=== PATIENT | male | born 1965 | race Caucasian/White ===

== ENCOUNTER 2025-09-05 16:17 | Emergency (ER) | payer MEDICAID ==
[~2025-09-05] VITALS: Ht 172.7 cm; Wt 81.6 kg
[~2025-09-05 16:17] MED LIST: ADDERALL 10 MG10 MG PO; ADDERALL XR20 MG PO; ADDERALL XR30 MG PO; ADDERALL20 MG PO; ADDERALL30 MG PO; ALBUTEROL0.63 MG/3 INH; ALDACTONE25 M1 PO; ATROVENT H0.017 MG/A INH; AUGMENTIN 500 M1 TAB PO; BACTRIM DS 8001 TA1 PO; BLEPH-10 15 ML15 ML OP; CARBATROL100 MG PO; CARBATROL300 MG PO; CLINDAMYCIN150 MG PO; COLACE100 MG PO; COREG6.25 MG PO; CYCLOBENZAPRINE10 MG; FOLIC ACID1 MG PO; GEODON20 MG IJ; IBUPROFEN600 MG PO; KEFLEX500 MG PO; KEPPRA500 MG PO; KLONOPIN1 MG PO; LASIX40 MG PO; LEUCOVORIN CALC15 MG PO; LEVOFLOXACIN500 MG PO; LOPRESSOR25 MG PO; MOTRIN400 MG PO; MOTRIN800 MG PO; NATURE'S BLEND F1 MG PO; NEOMYCIN500 MG PO; NITROSTAT0.4 MG SL; PERCOCET 325 MG1 TA2; PERCOCET 325 MG1 TA2 PO; PERCOCET 325 MG1 TA6 PO; PIROXICAN10 MG PO; PRISTIQ50 MG PO; PYRIDIUM200 MG PO; QUETIAPINE FUM100 M1 PO; REQUIP0.5 MG PO; ROBAXIN750 MG PO; SEROQUEL XR200 MG PO; SEROQUEL300 MG PO; SERTRALINE50 MG PO; SOMA350 MG PO; TOPROL XL25 MG PO; TYLENOL W/ CODE1 TAB; TYLENOL325 M2 PO; VALIUM2 MG; VALIUM2 MG PO; VENTOLIN 02.5 MG/3 M INH; VIBRAMYCIN100 MG PO; VICODIN 5/500 505 MG PO; VITAMIN D3 PO; XANAX XR1 MG PO; XANAX1 MG PO; ZESTRIL,PRINIVIL5 MG PO; ZOLOFT100 MG PO; [UNRECOGNIZED DRUG - OTHER] PO
[2025-09-05 16:58] LABS: BASO # 0.0 10*3/uL (0.0-0.1); BASO % 0.8 % (0.0-1.0); EOS # 0.4 10*3/uL (0.0-0.4); EOS % 7.1 % (1.0-4.0); MEAN CELL VOLUME 100.3 fl (80.0-94.0); MEAN CORPUSCULAR HGB 34.3 pg (27.0-31.0); MEAN PLATELET VOLUME 9.4 fl (9.6-12.3); MONO # 0.4 10*3/uL (0.1-1.0); MONO % 6.7 % (3.0-9.0); NEUT # 2.7 10*3/uL (2.3-7.9); NEUT % 51.1 % (47.0-73.0); NUCLEATED RED BLOOD CELL 0.0 % (0.0-0.0); NUCLEATED RED BLOOD CELL 0.0 10*3/uL (0.0-0.0); PLATELET COUNT AUTOMATED 240 10*3/uL (130-400); RED CELL DISTRI WIDTH 12.2 % (0-14.5)
[2025-09-05 17:18] LABS: BUN 10 mg/dl (9-23); ETHYL ALCOHOL < 3.0 mg/dl (<3); SGPT/ALT 24 U/L (5-49)
[2025-09-05 18:12] LABS: BILIRUBIN Negative (Negative); BLOOD Negative (Negative); CLARITY Clear (Clear); COLOR Orange (Yellow); KETONE Trace (Negative); LEUKO ESTERASE Trace (Negative); NITRITE Negative (Negative); PH 5.5 (4.5-8.0); SPECIFIC GRAVITY 1.015 (1.001-1.030); UROBILINOGEN 1.0 E.U./dl (0.0-1.0)
[2025-09-05 18:19] LABS: URINE AMPHETAMINES Negative (1000ng/ml); URINE BARBITURATES Negative (200ng/ml); URINE BENZODIAZEPINES Negative (200ng/ml); URINE CANNABINOIDS (THC) Negative (50ng/ml); URINE COCAINE Negative (300ng/ml); URINE METHADONE Positive (300ng/ml); URINE OPIATES Positive (300ng/ml); URINE PHENCYCLIDINE Negative (25ng/ml)
[2025-09-05 18:31] LABS: RBC 0-2 rbc/hpf (0-2); WBC 0-2 wbc/hpf (0-5)
[2025-09-05 18:33] LABS: BACTERIA TRACE
[2025-09-05 19:19] VITALS: BP 105/64
== END 2025-09-05 19:33 ==
LOC: ED 16:17
DX: F32.A Depression, unspecified (principal); I10 Essential (primary) hypertension; I25.2 Old myocardial infarction; J44.9 Chronic obstructive pulmonary disease, unspecified; Z88.0 Allergy status to penicillin; Z88.8 Allergy status to other drugs, medicaments and biological substances